=== PATIENT | male | born 1965 | race Caucasian/White ===

== ENCOUNTER 2018-11-29 12:04 | Inpatient (IN) ==
[2018-11-29] MEDS ORDERED: NITROGLYCERIN 2% OINT 1 INCH/GM PACK TOP STA (13:44)
[2018-11-29] MEDS ORDERED: ONDANSETRON 4 MG/2 ML VIAL IV STA (13:44)
[2018-11-29] MEDS ORDERED: ASPIRIN 325 MG TABLET PO STA (13:44)
[2018-11-29] MEDS ORDERED: MORPHINE 4 MG/1 ML VIAL IV STA (13:44)
[2018-11-29] MEDS ORDERED: ENOXAPARIN 100 MG/ML SYRINGE SUBCUT STA (13:44)
[2018-11-29 14:25] LABS: Basophils # 0.1 10*3/uL (0.0-0.2); Basophils % 1.1 % (0.0-0.8); Eosinophils # 0.3 10*3/uL (0.0-0.87); Eosinophils % 2.3 % (0.00-10.9); Hematocrit 48.1 VOL% (42.0-52.0); Hemoglobin 15.9 GM/DL (14.0-18.0); Immature Granulocytes % 0.8 %; Immature Granulocytes Absolute 0.09 #; Lymphocytes # 3.4 10*3/uL (1.4-4.0); Lymphocytes % 29.1 % (21.2-54.2); Mean Corpuscular HGB Conc 33.1 GM/DL (32-36); Mean Corpuscular Volume 90.8 FL (87-102); Monocytes % 7.6 % (1.7-12.7); Neutrophils % 59.1 % (38.7-73.9); Platelet Count 264 T/CUMM (130-400); Red Cell Distribution Width 12.3 % (9.3-17.3); White Blood Count 11.5 T/CUMM (4-12)
[2018-11-29 14:34] LABS: INR 0.9; PT Patient Result 10.1 SECS
[2018-11-29 14:51] LABS: Albumin 4.1 G/DL (3.4-5.0); Bilirubin,Total 0.4 MG/DL (0.2-1.0); Osmolality,Calculated 279.5 MOS/KG (273-304)
[2018-11-29] MEDS ORDERED: MORPHINE 4 MG/1 ML VIAL IV PRN (16:03)
[2018-11-29] MEDS ORDERED: ONDANSETRON 4 MG/2 ML VIAL IV PRN (16:03)
[2018-11-29] MEDS ORDERED: DOCUSATE SODIUM 100 MG CAPSULE PO PRN (16:03)
[2018-11-29] MEDS ORDERED: NICOTINE 21 MG/24 HR PATCH TRANSDERM PRN (16:03)
[2018-11-29 16:20] LABS: Apearance,Urine CLEAR (Clear); Bilirubin,Urine Negative (Negative); Blood, Urine Negative (Negative); Glucose,Urine (UA) Negative (Negative); Ketones,Urine Negative (Negative); Nitrite,Urine Negative (Negative); Protein,Urine Negative; RBC,Urine <1 /HPF (0-4); Urine Color Yellow (Yellow); Urine Specific Gravity 1.004 (1.001-1.035); Urine Urobilinogen < 2.0 EU/DL (0.2-1.0)
[2018-11-29 16:24] LABS: Barbiturates Screen,Urine Negative (Negative); Benzodiazepines Screen,Urine Negative (Negative); Cannabinoid Screen,Urine Positive (Negative); Opiate Screen,Urine Positive (Negative); Phencyclidine Screen,Urine Negative (Negative)
[2018-11-29] MEDS ORDERED: DEXTROSE 50% 25 GM/50 ML VIAL IV PRN (16:36)
[2018-11-29] MEDS ORDERED: GLUCAGON 1 MG VIAL IM PRN (16:36)
[2018-11-29] MEDS ORDERED: PNEUMOCOCCAL VACCINE (13 VALENT) 0.5 ML SYRINGE IM ONE (16:42)
[2018-11-29 17:03] LABS: Risk Ratio 4.08; Thyroid Stimulating Hormone 0.588 uIU/ml (0.358-3.74); VLDL CHOLESTEROL 22.4 MG/DL
[2018-11-29] MEDS: INSULIN GLARGINE 100 UNIT/ML SUBCUT SCH (21:12)
[2018-11-29] MEDS: metFORMIN 500 MG TABLET PO SCH (21:12)
[2018-11-29] MEDS ORDERED: ACETAMINOPHEN 325 MG TABLET PO PRN (23:30)
[2018-11-30] MEDS ORDERED: ACETAMINOPHEN 500 MG TABLET PO SCH (06:00)
[2018-11-30 06:05] LABS: Basophils # 0.1 10*3/uL (0.0-0.2); Basophils % 0.9 % (0.0-0.8); Eosinophils # 0.5 10*3/uL (0.0-0.87); Eosinophils % 3.2 % (0.00-10.9); Hematocrit 43.3 VOL% (42.0-52.0); Hemoglobin 14.6 GM/DL (14.0-18.0); Immature Granulocytes % 0.4 %; Immature Granulocytes Absolute 0.06 #; Lymphocytes # 3.9 10*3/uL (1.4-4.0); Lymphocytes % 28.1 % (21.2-54.2); Mean Corpuscular HGB Conc 33.7 GM/DL (32-36); Mean Corpuscular Volume 89.6 FL (87-102); Mean Platelet Volume 11.9 FL (9.6-12.0); Monocytes % 7.1 % (1.7-12.7); Neutrophils % 60.3 % (38.7-73.9); Platelet Count 231 T/CUMM (130-400); Red Blood Count 4.83 MC/CUMM (3.8-5.5); Red Cell Distribution Width 12.4 % (9.3-17.3); White Blood Count 13.9 T/CUMM (4-12)
[2018-11-30 06:42] LABS: Albumin 3.5 G/DL (3.4-5.0); Bilirubin,Total 0.9 MG/DL (0.2-1.0); Calcium 9.5 MG/DL (8.5-10.1); Osmolality,Calculated 278.4 MOS/KG (273-304); Total Protein 6.7 G/DL (6.4-8.3)
[2018-11-30] MEDS ORDERED: amLODIPine 5 MG TABLET PO SCH (09:00)
[2018-11-30] MEDS: METOPROLOL SUCCINATE XL 100 MG TABLET PO SCH (09:50)
[2018-11-30] MEDS: SIMVASTATIN 10 MG TABLET PO SCH (09:50)
[2018-11-30] MEDS: sitaGLIPtin 100 MG TABLET PO SCH (09:51)
[2018-11-30] MEDS: HYDROmorphone 2 MG TABLET PO PRN (09:51)
[2018-11-30] MEDS: metFORMIN 500 MG TABLET PO SCH ×2 (09:51→22:55)
[2018-11-30] MEDS: fentaNYL 50 MCG/HR PATCH TRANSDERM SCH (09:51)
[2018-11-30] MEDS: PANTOPRAZOLE 40 MG TABLET PO SCH (09:52)
[2018-11-30] MEDS: NICOTINE 21 MG/24 HR PATCH TRANSDERM SCH (11:05)
[2018-11-30] MEDS ORDERED: ASPIRIN EC 81 MG TABLET PO SCH (11:53)
[2018-11-30] MEDS: INSULIN LISPRO PROTAMINE/LISPRO 75/25 100 UNIT/ML SUBCUT SCH ×2 (12:15→16:45)
[2018-11-30] MEDS ORDERED: ALUM/MAG/SIMETH/LIDO VISC 1:1 30 ML BOTTLE PO PRN (15:12)
[2018-11-30] MEDS ORDERED: ENOXAPARIN 40 MG/0.4 ML SYRINGE SUBCUT ONE (15:14)
[2018-11-30] MEDS ORDERED: ENOXAPARIN 40 MG/0.4 ML SYRINGE SUBCUT SCH (16:30)
[2018-11-30] MEDS: ACETAMINOPHEN 325 MG TABLET PO SCH ×2 (16:43→20:38)
[2018-11-30] MEDS: ASPIRIN CHEW 81 MG TABLET PO SCH (16:43)
[2018-11-30] MEDS: hydroCHLOROthiazide 12.5 MG CAPSULE PO SCH (16:44)
[2018-11-30] MEDS: MINOXIDIL 2.5 MG TABLET PO SCH ×2 (16:44→20:37)
[2018-11-30] MEDS: LISINOPRIL 5 MG TABLET PO SCH (16:44)
[2018-11-30] MEDS: ENOXAPARIN 80 MG/0.8 ML SYRINGE SUBCUT SCH (16:45)
[2018-11-30] MEDS: GABAPENTIN 100 MG CAPSULE PO SCH (20:38)
[2018-11-30] MEDS ORDERED: amLODIPine 5 MG TABLET PO ONE (21:00)
[2018-11-30] MEDS ORDERED: ENOXAPARIN 80 MG/0.8 ML SYRINGE SUBCUT ONE (22:00)
[2018-11-30] MEDS: INSULIN GLARGINE 100 UNIT/ML SUBCUT SCH (22:55)
[2018-12-01] MEDS: ENOXAPARIN 80 MG/0.8 ML SYRINGE SUBCUT SCH ×2 (03:55→16:00)
[2018-12-01 04:53] LABS: Basophils # 0.1 10*3/uL (0.0-0.2); Basophils % 1.4 % (0.0-0.8); Eosinophils # 0.4 10*3/uL (0.0-0.87); Eosinophils % 4.2 % (0.00-10.9); Hematocrit 42.3 VOL% (42.0-52.0); Hemoglobin 14.3 GM/DL (14.0-18.0); Immature Granulocytes % 0.6 %; Immature Granulocytes Absolute 0.05 #; Lymphocytes # 4.1 10*3/uL (1.4-4.0); Lymphocytes % 48.6 % (21.2-54.2); Mean Corpuscular HGB Conc 33.8 GM/DL (32-36); Mean Corpuscular Volume 89.8 FL (87-102); Mean Platelet Volume 11.7 FL (9.6-12.0); Monocytes % 7.6 % (1.7-12.7); Neutrophils % 37.6 % (38.7-73.9); Platelet Count 209 T/CUMM (130-400); Red Blood Count 4.71 MC/CUMM (3.8-5.5); White Blood Count 8.3 T/CUMM (4-12)
[2018-12-01 05:28] LABS: Albumin 3.4 G/DL (3.4-5.0); Bilirubin,Total 0.7 MG/DL (0.2-1.0); Calcium 8.9 MG/DL (8.5-10.1); Osmolality,Calculated 289.5 MOS/KG (273-304); Total Protein 6.4 G/DL (6.4-8.3)
[2018-12-01 06:12] LABS: Band Neutrophils 3 % (0-10); Eosinophils 4 % (0-10); Lymphocytes 42 % (20-55); Platelet Estimate Normal; Polychromasia Few; Segmented Neutrophils 46 % (50-85); Total Cells Counted 100
[2018-12-01] MEDS ORDERED: diphenhydrAMINE CAP 25 MG CAPSULE PO ONE (08:29)
[2018-12-01] MEDS ORDERED: MAGNESIUM SULF RIDER 2 GM in PREMIX 1 EACH IV PRN (08:29)
[2018-12-01] MEDS ORDERED: POTASSIUM CHLORIDE RIDER 10 MEQ in PREMIX 1 EACH IV PRN (08:29)
[2018-12-01] MEDS ORDERED: DIAZEPAM 5 MG TABLET PO ONE (08:29)
[2018-12-01] MEDS ORDERED: SODIUM CHLORIDE 0.9% 1,000 ML IV SCH (08:30)
[2018-12-01] MEDS: INSULIN LISPRO PROTAMINE/LISPRO 75/25 100 UNIT/ML SUBCUT SCH ×3 (09:06→18:19)
[2018-12-01] MEDS: NICOTINE 21 MG/24 HR PATCH TRANSDERM SCH (09:09)
[2018-12-01] MEDS: ACETAMINOPHEN 325 MG TABLET PO SCH ×2 (10:48→22:17)
[2018-12-01] MEDS: PANTOPRAZOLE 40 MG TABLET PO SCH ×2 (10:48→16:40)
[2018-12-01] MEDS: METOPROLOL SUCCINATE XL 100 MG TABLET PO SCH ×2 (10:48→16:39)
[2018-12-01] MEDS: SIMVASTATIN 10 MG TABLET PO SCH (10:48)
[2018-12-01] MEDS: LISINOPRIL 5 MG TABLET PO SCH ×2 (10:50→16:40)
[2018-12-01] MEDS: sitaGLIPtin 100 MG TABLET PO SCH ×2 (10:51→16:39)
[2018-12-01] MEDS: hydroCHLOROthiazide 12.5 MG CAPSULE PO SCH ×2 (10:51→16:38)
[2018-12-01] MEDS: MINOXIDIL 2.5 MG TABLET PO SCH ×3 (10:51→22:17)
[2018-12-01] MEDS: GABAPENTIN 100 MG CAPSULE PO SCH ×4 (10:51→22:22)
[2018-12-01] MEDS: amLODIPine 10 MG TABLET PO SCH ×2 (10:51→16:38)
[2018-12-01] MEDS: ASPIRIN CHEW 81 MG TABLET PO SCH ×2 (10:53→16:38)
[2018-12-01] MEDS ORDERED: LIDOCAINE 1% 20 ML VIAL ONE (15:09)
[2018-12-01] MEDS ORDERED: MIDAZOLAM 2 MG/2 ML VIAL ONE (15:33)
[2018-12-01] MEDS ORDERED: fentaNYL 100 MCG/2 ML VIAL ONE (15:33)
[2018-12-01] MEDS ORDERED: DEXTROSE 50% 25 GM/50 ML VIAL IV PRN (16:27)
[2018-12-01] MEDS: HYDROmorphone 2 MG TABLET PO PRN (16:43)
[2018-12-01] MEDS: ROSUVASTATIN 10 MG TABLET PO SCH (22:16)
[2018-12-01] MEDS: INSULIN GLARGINE 100 UNIT/ML SUBCUT SCH (22:18)
[2018-12-02 05:41] LABS: Basophils # 0.1 10*3/uL (0.0-0.2); Basophils % 0.8 % (0.0-0.8); Eosinophils # 0.4 10*3/uL (0.0-0.87); Eosinophils % 3.8 % (0.00-10.9); Hematocrit 43.4 VOL% (42.0-52.0); Hemoglobin 14.6 GM/DL (14.0-18.0); Immature Granulocytes % 0.6 %; Immature Granulocytes Absolute 0.07 #; Lymphocytes # 3.4 10*3/uL (1.4-4.0); Lymphocytes % 30.8 % (21.2-54.2); Mean Corpuscular HGB Conc 33.6 GM/DL (32-36); Mean Corpuscular Volume 91.2 FL (87-102); Mean Platelet Volume 11.6 FL (9.6-12.0); Monocytes % 7.1 % (1.7-12.7); Neutrophils % 56.9 % (38.7-73.9); Platelet Count 212 T/CUMM (130-400); Red Blood Count 4.76 MC/CUMM (3.8-5.5); Red Cell Distribution Width 12.3 % (9.3-17.3)
[2018-12-02 06:19] LABS: Albumin 3.3 G/DL (3.4-5.0); Bilirubin,Total 0.6 MG/DL (0.2-1.0); Calcium 9.1 MG/DL (8.5-10.1); Osmolality,Calculated 283.1 MOS/KG (273-304); Total Protein 6.4 G/DL (6.4-8.3)
[2018-12-02] MEDS: INSULIN LISPRO PROTAMINE/LISPRO 75/25 100 UNIT/ML SUBCUT SCH ×3 (09:14→16:26)
[2018-12-02] MEDS: MINOXIDIL 2.5 MG TABLET PO SCH ×2 (09:16→22:58)
[2018-12-02] MEDS: LISINOPRIL 5 MG TABLET PO SCH (09:17)
[2018-12-02] MEDS: hydroCHLOROthiazide 12.5 MG CAPSULE PO SCH (09:17)
[2018-12-02] MEDS: METOPROLOL SUCCINATE XL 100 MG TABLET PO SCH (09:17)
[2018-12-02] MEDS: ASPIRIN CHEW 81 MG TABLET PO SCH (09:17)
[2018-12-02] MEDS: GABAPENTIN 100 MG CAPSULE PO SCH ×3 (09:17→22:57)
[2018-12-02] MEDS: PANTOPRAZOLE 40 MG TABLET PO SCH (09:18)
[2018-12-02] MEDS: amLODIPine 10 MG TABLET PO SCH (09:18)
[2018-12-02] MEDS: ENOXAPARIN 40 MG/0.4 ML SYRINGE SUBCUT SCH ×2 (09:18→23:00)
[2018-12-02] MEDS: NICOTINE 21 MG/24 HR PATCH TRANSDERM SCH (09:19)
[2018-12-02] MEDS: sitaGLIPtin 100 MG TABLET PO SCH (09:22)
[2018-12-02] MEDS: ACETAMINOPHEN 325 MG TABLET PO SCH ×2 (10:16→22:58)
[2018-12-02] MEDS: ROSUVASTATIN 10 MG TABLET PO SCH (22:56)
[2018-12-02] MEDS: INSULIN GLARGINE 100 UNIT/ML SUBCUT SCH (23:01)
[2018-12-03 05:05] LABS: Basophils # 0.1 10*3/uL (0.0-0.2); Eosinophils # 0.6 10*3/uL (0.0-0.87); Eosinophils % 5.9 % (0.00-10.9); Hematocrit 41.6 VOL% (42.0-52.0); Hemoglobin 13.9 GM/DL (14.0-18.0); Immature Granulocytes % 0.6 %; Immature Granulocytes Absolute 0.06 #; Lymphocytes % 32.3 % (21.2-54.2); Mean Corpuscular HGB Conc 33.4 GM/DL (32-36); Mean Corpuscular Volume 90.6 FL (87-102); Mean Platelet Volume 11.3 FL (9.6-12.0); Monocytes % 10.2 % (1.7-12.7); Platelet Count 188 T/CUMM (130-400); Red Blood Count 4.59 MC/CUMM (3.8-5.5); Red Cell Distribution Width 12.2 % (9.3-17.3); White Blood Count 9.4 T/CUMM (4-12)
[2018-12-03 05:19] LABS: Calcium 8.8 MG/DL (8.5-10.1)
[2018-12-03] MEDS: fentaNYL 50 MCG/HR PATCH TRANSDERM SCH (09:58)
[2018-12-03] MEDS: NICOTINE 21 MG/24 HR PATCH TRANSDERM SCH (09:58)
[2018-12-03] MEDS: INSULIN LISPRO PROTAMINE/LISPRO 75/25 100 UNIT/ML SUBCUT SCH ×3 (10:01→16:48)
[2018-12-03] MEDS: amLODIPine 10 MG TABLET PO SCH (10:02)
[2018-12-03] MEDS: GABAPENTIN 100 MG CAPSULE PO SCH ×3 (10:02→20:52)
[2018-12-03] MEDS: metFORMIN 500 MG TABLET PO SCH ×2 (10:02→20:51)
[2018-12-03] MEDS: ASPIRIN CHEW 81 MG TABLET PO SCH (10:02)
[2018-12-03] MEDS: ACETAMINOPHEN 325 MG TABLET PO SCH ×2 (10:03→20:51)
[2018-12-03] MEDS: MINOXIDIL 2.5 MG TABLET PO SCH ×2 (10:03→20:52)
[2018-12-03] MEDS: hydroCHLOROthiazide 12.5 MG CAPSULE PO SCH (10:03)
[2018-12-03] MEDS: PANTOPRAZOLE 40 MG TABLET PO SCH (10:03)
[2018-12-03] MEDS: sitaGLIPtin 100 MG TABLET PO SCH (10:03)
[2018-12-03] MEDS: METOPROLOL SUCCINATE XL 100 MG TABLET PO SCH (10:03)
[2018-12-03] MEDS: LISINOPRIL 5 MG TABLET PO SCH (10:03)
[2018-12-03] MEDS: HYDROmorphone 2 MG TABLET PO PRN (20:50)
[2018-12-03] MEDS: ROSUVASTATIN 10 MG TABLET PO SCH (20:52)
[2018-12-03] MEDS: INSULIN GLARGINE 100 UNIT/ML SUBCUT SCH (20:55)
[2018-12-04 05:44] LABS: Basophils # 0.1 10*3/uL (0.0-0.2); Eosinophils # 0.7 10*3/uL (0.0-0.87); Eosinophils % 6.8 % (0.00-10.9); Hematocrit 41.3 VOL% (42.0-52.0); Hemoglobin 13.8 GM/DL (14.0-18.0); Immature Granulocytes % 0.8 %; Immature Granulocytes Absolute 0.08 #; Lymphocytes # 3.4 10*3/uL (1.4-4.0); Mean Corpuscular HGB Conc 33.4 GM/DL (32-36); Mean Corpuscular Volume 90.8 FL (87-102); Mean Platelet Volume 11.6 FL (9.6-12.0); Monocytes % 9.8 % (1.7-12.7); Neutrophils % 47.6 % (38.7-73.9); Platelet Count 199 T/CUMM (130-400); Red Blood Count 4.55 MC/CUMM (3.8-5.5); Red Cell Distribution Width 12.1 % (9.3-17.3); White Blood Count 10.1 T/CUMM (4-12)
[2018-12-04] MEDS: NICOTINE 21 MG/24 HR PATCH TRANSDERM SCH (09:59)
[2018-12-04] MEDS: hydroCHLOROthiazide 12.5 MG CAPSULE PO SCH (10:02)
[2018-12-04] MEDS: PANTOPRAZOLE 40 MG TABLET PO SCH (10:02)
[2018-12-04] MEDS: ACETAMINOPHEN 325 MG TABLET PO SCH ×2 (10:02→21:46)
[2018-12-04] MEDS: GABAPENTIN 100 MG CAPSULE PO SCH ×3 (10:02→20:39)
[2018-12-04] MEDS: sitaGLIPtin 100 MG TABLET PO SCH (10:03)
[2018-12-04] MEDS: amLODIPine 10 MG TABLET PO SCH (10:03)
[2018-12-04] MEDS: METOPROLOL SUCCINATE XL 100 MG TABLET PO SCH (10:03)
[2018-12-04] MEDS ORDERED: ENOXAPARIN 40 MG/0.4 ML SYRINGE SUBCUT SCH ×2 (10:30→21:00)
[2018-12-04] MEDS ORDERED: ASPIRIN EC 325 MG TABLET PO ONE (12:00)
[2018-12-04] MEDS: INSULIN LISPRO PROTAMINE/LISPRO 75/25 100 UNIT/ML SUBCUT SCH ×3 (12:01→18:43)
[2018-12-04] MEDS: LISINOPRIL 5 MG TABLET PO SCH ×2 (12:01→18:44)
[2018-12-04] MEDS ORDERED: hydrALAZINE 20 MG/1 ML VIAL IV PRN (16:30)
[2018-12-04] MEDS: ASPIRIN CHEW 81 MG TABLET PO SCH (18:43)
[2018-12-04] MEDS: metFORMIN 500 MG TABLET PO SCH (18:43)
[2018-12-04] MEDS: MINOXIDIL 2.5 MG TABLET PO SCH ×2 (18:44→20:38)
[2018-12-04] MEDS: INSULIN GLARGINE 100 UNIT/ML SUBCUT SCH (20:37)
[2018-12-04] MEDS: ROSUVASTATIN 10 MG TABLET PO SCH (20:37)
[2018-12-04] MEDS: HYDROmorphone 2 MG TABLET PO PRN (23:52)
[2018-12-05 05:10] LABS: Basophils # 0.1 10*3/uL (0.0-0.2); Basophils % 0.7 % (0.0-0.8); Eosinophils # 0.8 10*3/uL (0.0-0.87); Eosinophils % 6.7 % (0.00-10.9); Hematocrit 41.3 VOL% (42.0-52.0); Hemoglobin 13.8 GM/DL (14.0-18.0); Immature Granulocytes % 0.9 %; Lymphocytes % 34.1 % (21.2-54.2); Mean Corpuscular HGB Conc 33.4 GM/DL (32-36); Mean Platelet Volume 12.2 FL (9.6-12.0); Monocytes % 8.7 % (1.7-12.7); Neutrophils % 48.9 % (38.7-73.9); Platelet Count 194 T/CUMM (130-400); Red Blood Count 4.59 MC/CUMM (3.8-5.5); Red Cell Distribution Width 12.2 % (9.3-17.3); White Blood Count 11.6 T/CUMM (4-12)
[2018-12-05 05:15] LABS: Calcium 9.3 MG/DL (8.5-10.1); Osmolality,Calculated 287.5 MOS/KG (273-304)
[2018-12-05] MEDS ORDERED: CEFUROXIME INJ 1,500 MG in SODIUM CHLORIDE 0.9% 100 ML IV ONE (07:00)
[2018-12-05] MEDS ORDERED: DEXTROSE 50% 25 GM/50 ML VIAL IV PRN (07:34)
[2018-12-05] MEDS ORDERED: GLUCAGON 1 MG VIAL IM PRN (07:34)
[2018-12-05] MEDS ORDERED: DEXTROSE 10% 250 ML IV PRN (07:41)
[2018-12-05] MEDS ORDERED: SODIUM CHLORIDE 0.9% 1,000 ML IV SCH (08:00)
[2018-12-05] MEDS: LISINOPRIL 5 MG TABLET PO SCH (09:31)
[2018-12-05] MEDS: MINOXIDIL 2.5 MG TABLET PO SCH ×2 (09:31→20:49)
[2018-12-05] MEDS: NICOTINE 21 MG/24 HR PATCH TRANSDERM SCH (09:31)
[2018-12-05] MEDS: hydroCHLOROthiazide 12.5 MG CAPSULE PO SCH (09:31)
[2018-12-05] MEDS: ASPIRIN EC 325 MG TABLET PO SCH (09:32)
[2018-12-05] MEDS: GABAPENTIN 100 MG CAPSULE PO SCH ×3 (09:32→20:58)
[2018-12-05] MEDS: amLODIPine 10 MG TABLET PO SCH (09:32)
[2018-12-05] MEDS: PANTOPRAZOLE 40 MG TABLET PO SCH (09:33)
[2018-12-05] MEDS: METOPROLOL SUCCINATE XL 100 MG TABLET PO SCH (09:33)
[2018-12-05] MEDS: sitaGLIPtin 100 MG TABLET PO SCH (09:33)
[2018-12-05] MEDS: ACETAMINOPHEN 325 MG TABLET PO SCH ×2 (09:34→20:58)
[2018-12-05] MEDS: INSULIN LISPRO PROTAMINE/LISPRO 75/25 100 UNIT/ML SUBCUT SCH ×3 (09:34→17:21)
[2018-12-05] MEDS: CHLORHEXIDINE 4% SOLN 118 ML BOTTLE TOP SCH ×3 (09:39→20:58)
[2018-12-05] MEDS: CHLORHEXIDINE 0.12% ORAL RINSE 60 ML BOTTLE SWISH/SPIT SCH ×2 (09:39→20:58)
[2018-12-05 10:24] LABS: ABG Base Excess 2.2 MMOL/L (-2.5-2.5); ABG HCO3 25.7 MMOL/L (20-26); ABG Oxygen Saturation 96.5 % (95-100); ABG PCO2 36.6 MM HG (35-48); ABG PH 7.465 (7.35-7.45); ABG PO2 83.1 MM HG (80-95); ABG TCO2 26.9 MMOL/L (23-27)
[2018-12-05] MEDS: ROSUVASTATIN 10 MG TABLET PO SCH (20:49)
[2018-12-05] MEDS: HYDROmorphone 2 MG TABLET PO PRN (20:50)
[2018-12-05] MEDS: INSULIN GLARGINE 100 UNIT/ML SUBCUT SCH (20:51)
[2018-12-06] MEDS ORDERED: PAPAVERINE 60 MG/2 ML VIAL ONE (04:23)
[2018-12-06] MEDS ORDERED: VANCOMYCIN 1,000 MG VIAL ONE (04:23)
[2018-12-06] MEDS ORDERED: PHENYLEPHRINE DRIP 20 MG/250 ML PREMIX IV ONE (05:52)
[2018-12-06] MEDS ORDERED: HEPARIN/NACL 0.9% 2 UNITS/ML 500 ML IV ONE (05:52)
[2018-12-06] MEDS ORDERED: AMINOCAPROIC ACID 5,000 MG/20 ML VIAL ONE (05:53)
[2018-12-06] MEDS ORDERED: SUFentanil 250 MCG/5 ML AMP ONE (05:53)
[2018-12-06] MEDS ORDERED: MIDAZOLAM 10 MG/2 ML VIAL ONE ×2 (05:53→09:32)
[2018-12-06 07:47] LABS: ABG Base Excess 3.2 MMOL/L (-2.5-2.5); ABG HCO3 27.3 MMOL/L (20-26); ABG PCO2 38.4 MM HG (35-48); ABG PH 7.456 (7.35-7.45); ABG TCO2 23.3 MMOL/L (23-27); Glucose Heart Surgery 209 MG/DL (74-106); Hematocrit Heart Surgery 41.9 PERCENT (42-52); Hemoglobin Heart Surgery 13.6 G/DL (14.0-18.0); Ionized Calcium Arterial 1.19 MMOL/L (1.21-1.46); PCO2 Patient Temp Arterial 38.4 MMHG; PH Patient Temp Arterial 7.456; Patient Temperature 37 CELCIUS; Sodium Heart/CVR 137 MMOL/L (135-145)
[2018-12-06 08:20] LABS: Apearance,Urine CLEAR (Clear); Bilirubin,Urine Negative (Negative); Blood, Urine Large mg/dL (Negative); Glucose,Urine (UA) 50 mg/dL (Negative); Ketones,Urine Negative (Negative); Mucus,Urine Occasional /LPF (Occasional); Nitrite,Urine Negative (Negative); Protein,Urine Negative; RBC,Urine 22 /HPF (0-4); Squamous Epithelial Cell,Urine Occasional /HPF (0-10); Urine Color Yellow (Yellow); Urine Specific Gravity 1.012 (1.001-1.035); Urine Urobilinogen < 2.0 EU/DL (0.2-1.0); WBC,Urine <1 /HPF (0-6)
[2018-12-06] MEDS ORDERED: NITROPRUSSIDE 50 MG/2 ML VIAL ONE (08:56)
[2018-12-06] MEDS ORDERED: POTASSIUM CHLORIDE RIDER 100 ML IV ONE (08:57)
[2018-12-06] MEDS ORDERED: PHENYLEPHRINE DRIP 40 MG/250 ML PREMIX IV ONE (08:57)
[2018-12-06 09:21] LABS: Hemoglobin Heart Surgery 9.9 G/DL (14.0-18.0); PCO2 Patient Temp Venous 35.6 MM HG; PH Patient Temp Venous 7.489; PO2 Patient Temp Venous 35.9 MM HG; Potassium Heart/CVR 4.9 MMOL/L (3.5-5.1); VBG Oxygen Saturation 77.5 %; VBG PCO2 38.9 MMHG (41-51); VBG PH 7.459; VBG PO2 41.3 MMHG (17-40)
[2018-12-06] MEDS ORDERED: ALBUMIN 5% 12.5 GM/250 ML VIAL IV ONE (09:25)
[2018-12-06] MEDS ORDERED: SUFentanil 50 MCG/ML AMP ONE (09:32)
[2018-12-06] MEDS ORDERED: NITROGLYCERIN DRIP 50 MG/250 ML BOTTLE IV ONE (09:32)
[2018-12-06 09:53] LABS: PCO2 Patient Temp Venous 35.6 MM HG; PH Patient Temp Venous 7.476; PO2 Patient Temp Venous 36.9 MM HG; Potassium Heart/CVR 4.7 MMOL/L (3.5-5.1); VBG Base Excess 2.9 MEQ/L (0-4); VBG HCO3 26.7 MEQ/L (24-28); VBG Oxygen Saturation 79.6 %; VBG PCO2 39.3 MMHG (41-51); VBG PH 7.446; VBG PO2 42.5 MMHG (17-40)
[2018-12-06] MEDS ORDERED: MANNITOL 100 GM/500 ML BAG IV ONE (10:45)
[2018-12-06] MEDS ORDERED: PROTAMINE SULFATE 50 MG/5 ML VIAL IV ONE (10:46)
[2018-12-06] MEDS ORDERED: SODIUM BICARBONATE 50 MEQ/50 ML VIAL IV ONE (10:46)
[2018-12-06] MEDS ORDERED: MAGNESIUM SULFATE 5 GM/10 ML VIAL IV ONE (10:46)
[2018-12-06] MEDS ORDERED: HEPARIN 10,000 UNIT/10 ML VIAL ONE (10:46)
[2018-12-06] MEDS ORDERED: methylPREDNISolone SOD SUC 1,000 MG/8 ML VIAL ONE (10:46)
[2018-12-06] MEDS ORDERED: ALBUMIN 25% 25 GM/100 ML VIAL IV ONE (10:46)
[2018-12-06] MEDS ORDERED: PROTAMINE SULFATE 250 MG/25 ML VIAL IV ONE (10:46)
[2018-12-06] MEDS ORDERED: FUROSEMIDE 20 MG/2 ML VIAL ONE (10:46)
[2018-12-06] MEDS ORDERED: DEXTROSE 5% KCL 20 MEQ 20 MEQ/1,000 ML BAG IV ONE (10:47)
[2018-12-06 10:58] LABS: ABG Base Excess 0.6 MMOL/L (-2.5-2.5); ABG Oxygen Saturation 99.5 % (95-100); ABG PCO2 37.8 MM HG (35-48); ABG PH 7.426 (7.35-7.45); ABG TCO2 22.4 MMOL/L (23-27); Glucose Heart Surgery 373 MG/DL (74-106); Hematocrit Heart Surgery 32.3 PERCENT (42-52); Hemoglobin Heart Surgery 10.5 G/DL (14.0-18.0); Ionized Calcium Arterial 1.18 MMOL/L (1.21-1.46); PCO2 Patient Temp Arterial 37.8 MMHG; PH Patient Temp Arterial 7.426; Patient Temperature 37 CELCIUS; Potassium Heart/CVR 4.5 MMOL/L (3.5-5.1); Sodium Heart/CVR 133 MMOL/L (135-145)
[2018-12-06] MEDS ORDERED: SODIUM CHLORIDE 0.9% 100 ML IV ONE (12:00)
[2018-12-06] MEDS ORDERED: LACTATED RINGERS 2,000 ML IV ONE (12:00)
[2018-12-06] MEDS ORDERED: ETOMIDATE 40 MG/20 ML VIAL IV ONE (12:00)
[2018-12-06] MEDS ORDERED: CALCIUM CHLORIDE 1,000 MG/10 ML VIAL IV ONE (12:00)
[2018-12-06] MEDS ORDERED: SODIUM CHLORIDE 0.9% 1,000 ML IV ONE (12:00)
[2018-12-06] MEDS ORDERED: VECURONIUM 10 MG VIAL IV ONE (12:00)
[2018-12-06] MEDS ORDERED: SEVOFLURANE 1 UNIT/15 MINUTE INH ONE (12:02)
[2018-12-06] MEDS ORDERED: INSULIN REGULAR 100 UNIT/ML IV PRN (12:07)
[2018-12-06] MEDS ORDERED: POTASSIUM CHLORIDE RIDER 10 MEQ in PREMIX 1 EACH IV PRN (12:07)
[2018-12-06] MEDS ORDERED: VECURONIUM 10 MG VIAL IV PRN ×2 (12:07)
[2018-12-06] MEDS ORDERED: CALCIUM CHLORIDE 1,000 MG/10 ML SYRINGE IV PRN (12:07)
[2018-12-06] MEDS ORDERED: MIDAZOLAM 10 MG/2 ML VIAL IV PRN (12:07)
[2018-12-06] MEDS ORDERED: INSULIN REGULAR 100 UNIT/ML IV ONE (12:07)
[2018-12-06] MEDS ORDERED: ONDANSETRON 4 MG/2 ML VIAL IV PRN (12:07)
[2018-12-06] MEDS ORDERED: ALBUMIN 5% 12.5 GM in PREMIX 1 EACH IV PRN (12:07)
[2018-12-06] MEDS ORDERED: ACETAMINOPHEN 650 MG SUPP RECTAL PRN (12:07)
[2018-12-06] MEDS ORDERED: MAGNESIUM SULF RIDER 2 GM in PREMIX 1 EACH IV PRN (12:07)
[2018-12-06] MEDS ORDERED: MAGNESIUM SULF RIDER 4 GM in PREMIX 1 EACH IV PRN (12:07)
[2018-12-06] MEDS ORDERED: DEXTROSE 50% 25 GM/50 ML VIAL IV PRN ×2 (12:07)
[2018-12-06] MEDS ORDERED: LACTATED RINGERS 250 ML IV PRN (12:07)
[2018-12-06] MEDS ORDERED: PHENYLEPHRINE DRIP 40 MG/250 ML PREMIX IV PRN (12:07)
[2018-12-06] MEDS: MIDAZOLAM 2 MG/2 ML VIAL IV PRN ×3 (12:15→14:34)
[2018-12-06] MEDS: SODIUM CHLORIDE 0.45% 1,000 ML IV SCH ×2 (12:16)
[2018-12-06 12:40] LABS: ABG Base Excess 0.8 MMOL/L (-2.5-2.5); ABG Oxygen Saturation 91.4 % (95-100); ABG PCO2 49.2 MM HG (35-48); ABG PH 7.348 (7.35-7.45); ABG PO2 65.3 MM HG (80-95); ABG TCO2 24.3 MMOL/L (23-27); Glucose Heart Surgery 294 MG/DL (74-106); Hemoglobin Heart Surgery 11.4 G/DL (14.0-18.0); Potassium Heart/CVR 3.3 MMOL/L (3.5-5.1)
[2018-12-06 12:41] LABS: Basophils # 0.1 10*3/uL (0.0-0.2); Basophils % 0.5 % (0.0-0.8); Eosinophils # 0.1 10*3/uL (0.0-0.87); Eosinophils % 0.7 % (0.00-10.9); Hematocrit 32.7 VOL% (42.0-52.0); Immature Granulocytes Absolute 0.13 #; Mean Corpuscular HGB Conc 33.6 GM/DL (32-36); Mean Corpuscular Volume 90.6 FL (87-102); Neutrophils % 86.8 % (38.7-73.9); Red Cell Distribution Width 12.2 % (9.3-17.3); White Blood Count 13.6 T/CUMM (4-12)
[2018-12-06] MEDS: NITROPRUSSIDE 100 MG in DEXTROSE 5% 250 ML IV PRN (12:43)
[2018-12-06 12:44] LABS: Platelet Count 176 T/CUMM (130-400); Red Blood Count 3.61 MC/CUMM (3.8-5.5)
[2018-12-06] MEDS: POTASSIUM CHLORIDE RIDER 20 MEQ in PREMIX 1 EACH IV PRN ×5 (12:49→23:55)
[2018-12-06 12:51] LABS: PT Patient Result 10.7 SECS; Partial Thromboplastin Time 27.1 SECS (0-40)
[2018-12-06] MEDS: INSULIN REGULAR DRIP 100 ML IV SCH (13:05)
[2018-12-06 13:08] LABS: CKMB % 6.7 %
[2018-12-06 13:10] LABS: Troponin I 4.22 NG/ML (0.00-0.045)
[2018-12-06 13:11] LABS: Albumin 3.3 G/DL (3.4-5.0); Bilirubin,Total 0.9 MG/DL (0.2-1.0); Calcium 8.4 MG/DL (8.5-10.1); Osmolality,Calculated 292.3 MOS/KG (273-304); Total Protein 5.7 G/DL (6.4-8.3)
[2018-12-06] MEDS: KETOROLAC 30 MG/1 ML VIAL IV SCH ×3 (13:14→23:36)
[2018-12-06 13:28] LABS: ABG Base Excess -0.6 MMOL/L (-2.5-2.5); ABG HCO3 23.9 MMOL/L (20-26); ABG PCO2 44.6 MM HG (35-48); ABG PH 7.358 (7.35-7.45); ABG TCO2 22.6 MMOL/L (23-27); Glucose Heart Surgery 283 MG/DL (74-106); Potassium Heart/CVR 3.4 MMOL/L (3.5-5.1)
[2018-12-06] MEDS ORDERED: PROPOFOL 1,000 MG/100 ML BOTTLE IV ONE (13:36)
[2018-12-06] MEDS: PROPOFOL 1,000 MG/100 ML BOTTLE IV SCH ×3 (13:49→20:59)
[2018-12-06] MEDS ORDERED: AMIODARONE INJ 150 MG in DEXTROSE 5% 100 ML IV ONE (14:00)
[2018-12-06] MEDS ORDERED: AMIODARONE INJ 450 MG in DEXTROSE 5% 241 ML IV SCH (14:00)
[2018-12-06 14:27] LABS: ABG Base Excess 0.4 MMOL/L (-2.5-2.5); ABG HCO3 24.8 MMOL/L (20-26); ABG Oxygen Saturation 97.5 % (95-100); ABG PCO2 38.8 MM HG (35-48); ABG PH 7.414 (7.35-7.45); ABG PO2 89.4 MM HG (80-95); ABG TCO2 22.3 MMOL/L (23-27); Glucose Heart Surgery 280 MG/DL (74-106); Hematocrit Heart Surgery 33.7 PERCENT (42-52); Hemoglobin Heart Surgery 10.9 G/DL (14.0-18.0); Potassium Heart/CVR 4.1 MMOL/L (3.5-5.1)
[2018-12-06 16:16] LABS: ABG Base Excess -2.4 MMOL/L (-2.5-2.5); ABG HCO3 22.4 MMOL/L (20-26); ABG Oxygen Saturation 98.3 % (95-100); ABG PCO2 41.9 MM HG (35-48); ABG PH 7.351 (7.35-7.45); ABG TCO2 20.8 MMOL/L (23-27); Glucose Heart Surgery 260 MG/DL (74-106); Hematocrit Heart Surgery 35.1 PERCENT (42-52); Hemoglobin Heart Surgery 11.4 G/DL (14.0-18.0); Potassium Heart/CVR 3.6 MMOL/L (3.5-5.1)
[2018-12-06 17:45] LABS: ABG Base Excess 1.3 MMOL/L (-2.5-2.5); ABG HCO3 25.5 MMOL/L (20-26); ABG Oxygen Saturation 97.7 % (95-100); ABG PCO2 39.3 MM HG (35-48); ABG PH 7.422 (7.35-7.45); ABG PO2 91.4 MM HG (80-95); ABG TCO2 22.9 MMOL/L (23-27); Glucose Heart Surgery 240 MG/DL (74-106); Hematocrit Heart Surgery 34.6 PERCENT (42-52); Hemoglobin Heart Surgery 11.2 G/DL (14.0-18.0); Potassium Heart/CVR 4.3 MMOL/L (3.5-5.1)
[2018-12-06] MEDS: hydroCHLOROthiazide 12.5 MG CAPSULE PO SCH (19:20)
[2018-12-06] MEDS: fentaNYL 50 MCG/HR PATCH TRANSDERM SCH (19:20)
[2018-12-06] MEDS: ASPIRIN EC 325 MG TABLET PO SCH (19:20)
[2018-12-06] MEDS: INSULIN LISPRO PROTAMINE/LISPRO 75/25 100 UNIT/ML SUBCUT SCH ×2 (19:20→20:13)
[2018-12-06] MEDS: GABAPENTIN 100 MG CAPSULE PO SCH (19:21)
[2018-12-06] MEDS: sitaGLIPtin 100 MG TABLET PO SCH (19:21)
[2018-12-06] MEDS: amLODIPine 10 MG TABLET PO SCH (19:21)
[2018-12-06] MEDS: CHLORHEXIDINE 0.12% ORAL RINSE 60 ML BOTTLE SWISH/SPIT SCH ×2 (19:21→20:58)
[2018-12-06] MEDS: MINOXIDIL 2.5 MG TABLET PO SCH (19:21)
[2018-12-06] MEDS: NICOTINE 21 MG/24 HR PATCH TRANSDERM SCH (19:21)
[2018-12-06] MEDS: METOPROLOL SUCCINATE XL 100 MG TABLET PO SCH (19:22)
[2018-12-06] MEDS: PANTOPRAZOLE 40 MG TABLET PO SCH (19:22)
[2018-12-06] MEDS: LISINOPRIL 5 MG TABLET PO SCH (19:22)
[2018-12-06] MEDS: ACETAMINOPHEN 325 MG TABLET PO SCH (19:22)
[2018-12-06 20:05] LABS: ABG Base Excess 2.2 MMOL/L (-2.5-2.5); ABG HCO3 26.2 MMOL/L (20-26); ABG Oxygen Saturation 96.4 % (95-100); ABG PCO2 38.9 MM HG (35-48); ABG PH 7.447 (7.35-7.45); ABG PO2 87.3 MM HG (80-95); ABG TCO2 27.4 MMOL/L (23-27); Glucose Heart Surgery 215 MG/DL (74-106); Potassium Heart/CVR 4.5 MMOL/L (3.5-5.1)
[2018-12-06] MEDS ORDERED: DEXMEDETOMIDINE 200 MCG in SODIUM CHLORIDE 0.9% 48 ML IV PRN (20:10)
[2018-12-06 20:14] LABS: Hemoglobin Heart Surgery 11.9 G/DL (14.0-18.0)
[2018-12-06] MEDS: CEFUROXIME INJ 1,500 MG in SYRINGE 1 EACH IV SCH (20:17)
[2018-12-06 20:26] LABS: CKMB % 3.5 %
[2018-12-06 20:27] LABS: Troponin I 3.41 NG/ML (0.00-0.045)
[2018-12-06] MEDS: MORPHINE 10 MG/1 ML VIAL IV PRN ×2 (20:28→23:29)
[2018-12-06] MEDS: AMIODARONE INJ 450 MG in DEXTROSE 5% 241 ML IV SCH (20:30)
[2018-12-06 23:49] LABS: ABG Base Excess 1.9 MMOL/L (-2.5-2.5); ABG HCO3 26.1 MMOL/L (20-26); ABG Oxygen Saturation 97.7 % (95-100); ABG PCO2 39.7 MM HG (35-48); ABG PH 7.429 (7.35-7.45); ABG PO2 94.4 MM HG (80-95); ABG TCO2 23.4 MMOL/L (23-27); Glucose Heart Surgery 152 MG/DL (74-106); Hematocrit Heart Surgery 35.5 PERCENT (42-52); Hemoglobin Heart Surgery 11.5 G/DL (14.0-18.0); Potassium Heart/CVR 4.1 MMOL/L (3.5-5.1)
[2018-12-07] MEDS ORDERED: FUROSEMIDE 40 MG/4 ML VIAL IV ONE
[2018-12-07 01:45] LABS: ABG Base Excess 2.2 MMOL/L (-2.5-2.5); ABG HCO3 26.2 MMOL/L (20-26); ABG Oxygen Saturation 95.6 % (95-100); ABG PCO2 38.3 MM HG (35-48); ABG PH 7.442 (7.35-7.45); ABG PO2 74.7 MM HG (80-95); ABG TCO2 22.2 MMOL/L (23-27); Glucose Heart Surgery 129 MG/DL (74-106); Hematocrit Heart Surgery 45.6 PERCENT (42-52); Hemoglobin Heart Surgery 14.9 G/DL (14.0-18.0); Potassium Heart/CVR 4.1 MMOL/L (3.5-5.1)
[2018-12-07] MEDS: PROPOFOL 1,000 MG/100 ML BOTTLE IV SCH (02:26)
[2018-12-07] MEDS: INSULIN REGULAR DRIP 100 ML IV SCH (03:03)
[2018-12-07 04:03] LABS: Basophils % 0.1 % (0.0-0.8); Eosinophils % 0.1 % (0.00-10.9); Hematocrit 31.3 VOL% (42.0-52.0); Hemoglobin 10.6 GM/DL (14.0-18.0); Immature Granulocytes % 0.5 %; Immature Granulocytes Absolute 0.08 #; Lymphocytes # 1.1 10*3/uL (1.4-4.0); Lymphocytes % 6.3 % (21.2-54.2); Mean Corpuscular HGB Conc 33.9 GM/DL (32-36); Mean Corpuscular Volume 91.5 FL (87-102); Platelet Count 166 T/CUMM (130-400); Red Blood Count 3.42 MC/CUMM (3.8-5.5); Red Cell Distribution Width 12.7 % (9.3-17.3); White Blood Count 17.7 T/CUMM (4-12)
[2018-12-07 04:03] LABS: ABG Base Excess 2.3 MMOL/L (-2.5-2.5); ABG HCO3 26.5 MMOL/L (20-26); ABG Oxygen Saturation 97.9 % (95-100); ABG PCO2 43.6 MM HG (35-48); ABG PH 7.405 (7.35-7.45); ABG PO2 95.2 MM HG (80-95); ABG TCO2 24.5 MMOL/L (23-27); Glucose Heart Surgery 94 MG/DL (74-106); Hematocrit Heart Surgery 34.4 PERCENT (42-52); Hemoglobin Heart Surgery 11.1 G/DL (14.0-18.0); Potassium Heart/CVR 4.2 MMOL/L (3.5-5.1)
[2018-12-07 04:30] LABS: CKMB % 1.8 %; Troponin I 2.49 NG/ML (0.00-0.045)
[2018-12-07] MEDS: MORPHINE 10 MG/1 ML VIAL IV PRN ×3 (04:30→10:00)
[2018-12-07 04:34] LABS: Albumin 3.2 G/DL (3.4-5.0); Bilirubin,Direct 0.13 MG/DL (0.0-0.20); Bilirubin,Total 0.4 MG/DL (0.2-1.0); Calcium 8.4 MG/DL (8.5-10.1); Osmolality,Calculated 287.8 MOS/KG (273-304); Total Protein 5.9 G/DL (6.4-8.3)
[2018-12-07 05:16] LABS: ABG Base Excess 1.3 MMOL/L (-2.5-2.5); ABG HCO3 25.4 MMOL/L (20-26); ABG Oxygen Saturation 91.7 % (95-100); ABG PCO2 40.2 MM HG (35-48); ABG PH 7.416 (7.35-7.45); ABG PO2 61.2 MM HG (80-95); Glucose Heart Surgery 169 MG/DL (74-106); Hematocrit Heart Surgery 35.9 PERCENT (42-52); Hemoglobin Heart Surgery 11.6 G/DL (14.0-18.0); Potassium Heart/CVR 4.2 MMOL/L (3.5-5.1)
[2018-12-07] MEDS: POTASSIUM CHLORIDE RIDER 20 MEQ in PREMIX 1 EACH IV PRN (05:21)
[2018-12-07] MEDS: KETOROLAC 30 MG/1 ML VIAL IV SCH ×3 (05:41→17:48)
[2018-12-07] MEDS: CEFUROXIME INJ 1,500 MG in SYRINGE 1 EACH IV SCH ×2 (08:35→20:17)
[2018-12-07] MEDS: INSULIN REGULAR 100 UNIT/ML SUBCUT SCH ×5 (08:35→23:54)
[2018-12-07] MEDS: CHLORHEXIDINE 0.12% ORAL RINSE 60 ML BOTTLE SWISH/SPIT SCH ×2 (08:43→20:18)
[2018-12-07] MEDS ORDERED: GLUCAGON 1 MG VIAL IM PRN (09:39)
[2018-12-07] MEDS ORDERED: DEXTROSE 50% 25 GM/50 ML VIAL IV PRN (09:39)
[2018-12-07] MEDS ORDERED: INSULIN REGULAR 100 UNIT/ML SUBCUT SCH (10:00)
[2018-12-07] MEDS ORDERED: ASPIRIN EC 325 MG TABLET PO ONE (10:00)
[2018-12-07] MEDS ORDERED: MINOXIDIL 2.5 MG TABLET PO SCH (10:00)
[2018-12-07] MEDS: fentaNYL 50 MCG/HR PATCH TRANSDERM SCH (12:41)
[2018-12-07] MEDS: NICOTINE 21 MG/24 HR PATCH TRANSDERM SCH (12:42)
[2018-12-07] MEDS: LISINOPRIL 5 MG TABLET PO SCH (12:43)
[2018-12-07] MEDS: amLODIPine 10 MG TABLET PO SCH (12:43)
[2018-12-07] MEDS: HYDROmorphone 2 MG/1 ML VIAL IV PRN ×2 (15:12→22:15)
[2018-12-07] MEDS: SODIUM CHLORIDE 0.45% 1,000 ML IV SCH ×2 (15:13)
[2018-12-07] MEDS: AMIODARONE INJ 450 MG in DEXTROSE 5% 241 ML IV SCH (15:14)
[2018-12-07] MEDS: CARVEDILOL 3.125 MG TABLET PO SCH ×2 (17:48→23:11)
[2018-12-07] MEDS: ROSUVASTATIN 10 MG TABLET PO SCH (20:18)
[2018-12-07] MEDS: AMIODARONE 200 MG TABLET PO SCH (20:18)
[2018-12-08] MEDS: NITROPRUSSIDE 100 MG in DEXTROSE 5% 250 ML IV PRN (00:54)
[2018-12-08] MEDS: MORPHINE 4 MG/1 ML VIAL IV PRN ×3 (01:00→21:36)
[2018-12-08] MEDS: AMIODARONE INJ 450 MG in DEXTROSE 5% 241 ML IV SCH ×2 (02:01→17:04)
[2018-12-08] MEDS: INSULIN REGULAR 100 UNIT/ML SUBCUT SCH ×5 (04:56→19:56)
[2018-12-08] MEDS: HYDROmorphone 2 MG/1 ML VIAL IV PRN ×4 (04:56→19:38)
[2018-12-08 05:45] LABS: Albumin 2.9 G/DL (3.4-5.0); Bilirubin,Direct 0.16 MG/DL (0.0-0.20); Bilirubin,Total 1.3 MG/DL (0.2-1.0); Calcium 8.7 MG/DL (8.5-10.1); Osmolality,Calculated 291.4 MOS/KG (273-304); Total Protein 5.8 G/DL (6.4-8.3)
[2018-12-08 05:57] LABS: Basophils % 0.2 % (0.0-0.8); Hemoglobin 10.3 GM/DL (14.0-18.0); Immature Granulocytes % 0.7 %; Immature Granulocytes Absolute 0.12 #; Lymphocytes # 1.9 10*3/uL (1.4-4.0); Lymphocytes % 10.8 % (21.2-54.2); Mean Corpuscular HGB Conc 32.2 GM/DL (32-36); Mean Corpuscular Volume 94.1 FL (87-102); Mean Platelet Volume 12.3 FL (9.6-12.0); Monocytes % 8.7 % (1.7-12.7); Neutrophils % 79.6 % (38.7-73.9); Platelet Count 184 T/CUMM (130-400); Red Cell Distribution Width 12.5 % (9.3-17.3); White Blood Count 17.7 T/CUMM (4-12)
[2018-12-08] MEDS: CARVEDILOL 3.125 MG TABLET PO SCH ×3 (06:15→17:08)
[2018-12-08] MEDS: NICOTINE 21 MG/24 HR PATCH TRANSDERM SCH (08:02)
[2018-12-08] MEDS: amLODIPine 10 MG TABLET PO SCH (08:02)
[2018-12-08] MEDS: AMIODARONE 200 MG TABLET PO SCH ×2 (08:02→21:36)
[2018-12-08] MEDS: LISINOPRIL 5 MG TABLET PO SCH (08:02)
[2018-12-08] MEDS: CHLORHEXIDINE 0.12% ORAL RINSE 60 ML BOTTLE SWISH/SPIT SCH ×2 (08:03→22:41)
[2018-12-08] MEDS: INSULIN LISPRO 100 UNIT/ML SUBCUT SCH ×3 (08:10→17:08)
[2018-12-08] MEDS: ASPIRIN EC 325 MG TABLET PO SCH (10:34)
[2018-12-08] MEDS: LEVALBUTEROL 0.63 MG/3 ML NEB RESP TX SCH ×2 (13:22→19:00)
[2018-12-08] MEDS: INSULIN GLARGINE 100 UNIT/ML SUBCUT SCH (21:36)
[2018-12-08] MEDS: ROSUVASTATIN 10 MG TABLET PO SCH (21:36)
[2018-12-09] MEDS: CARVEDILOL 3.125 MG TABLET PO SCH ×2 (00:20→04:30)
[2018-12-09] MEDS: HYDROmorphone 2 MG/1 ML VIAL IV PRN ×2 (00:23→04:30)
[2018-12-09] MEDS: INSULIN REGULAR 100 UNIT/ML SUBCUT SCH ×6 (00:23→21:43)
[2018-12-09] MEDS: LEVALBUTEROL 0.63 MG/3 ML NEB RESP TX SCH ×4 (01:00→19:25)
[2018-12-09] MEDS: MORPHINE 4 MG/1 ML VIAL IV PRN (03:06)
[2018-12-09 05:17] LABS: Basophils % 0.3 % (0.0-0.8); Eosinophils % 0.2 % (0.00-10.9); Hematocrit 34.7 VOL% (42.0-52.0); Hemoglobin 11.4 GM/DL (14.0-18.0); Immature Granulocytes % 0.7 %; Lymphocytes # 2.5 10*3/uL (1.4-4.0); Lymphocytes % 16.5 % (21.2-54.2); Mean Corpuscular HGB Conc 32.9 GM/DL (32-36); Monocytes % 10.5 % (1.7-12.7); Neutrophils % 71.8 % (38.7-73.9); Platelet Count 192 T/CUMM (130-400); Red Blood Count 3.77 MC/CUMM (3.8-5.5); Red Cell Distribution Width 12.4 % (9.3-17.3); White Blood Count 15.3 T/CUMM (4-12)
[2018-12-09 05:35] LABS: Bilirubin,Direct 0.17 MG/DL (0.0-0.20); Bilirubin,Total 0.9 MG/DL (0.2-1.0); Calcium 8.5 MG/DL (8.5-10.1); Osmolality,Calculated 281.5 MOS/KG (273-304); Total Protein 6.2 G/DL (6.4-8.3)
[2018-12-09] MEDS: LISINOPRIL 5 MG TABLET PO SCH (08:00)
[2018-12-09] MEDS: amLODIPine 10 MG TABLET PO SCH (08:00)
[2018-12-09] MEDS: AMIODARONE INJ 450 MG in DEXTROSE 5% 241 ML IV SCH (08:00)
[2018-12-09] MEDS: NICOTINE 21 MG/24 HR PATCH TRANSDERM SCH (08:00)
[2018-12-09] MEDS: ASPIRIN EC 325 MG TABLET PO SCH (08:00)
[2018-12-09] MEDS: AMIODARONE 200 MG TABLET PO SCH ×2 (08:00→21:44)
[2018-12-09] MEDS: INSULIN LISPRO 100 UNIT/ML SUBCUT SCH ×3 (08:01→16:18)
[2018-12-09] MEDS: POTASSIUM CHLORIDE RIDER 20 MEQ in PREMIX 1 EACH IV PRN (08:01)
[2018-12-09] MEDS: CHLORHEXIDINE 0.12% ORAL RINSE 60 ML BOTTLE SWISH/SPIT SCH ×2 (08:43→21:44)
[2018-12-09] MEDS ORDERED: DOCUSATE SODIUM 100 MG CAPSULE PO PRN (08:55)
[2018-12-09] MEDS: CARVEDILOL 6.25 MG TABLET PO SCH ×2 (09:18→17:36)
[2018-12-09] MEDS ORDERED: MAGNESIUM HYDROXIDE SUSP 30 ML UDCUP PO PRN (12:42)
[2018-12-09] MEDS ORDERED: DEXTROSE 50% 25 GM/50 ML VIAL IV PRN (12:42)
[2018-12-09] MEDS ORDERED: GLUCAGON 1 MG VIAL IM PRN ×2 (12:42)
[2018-12-09] MEDS ORDERED: ZALEPLON 5 MG CAPSULE PO PRN (12:42)
[2018-12-09] MEDS ORDERED: MAGNESIUM SULF RIDER 4 GM in PREMIX 1 EACH IV PRN (12:42)
[2018-12-09] MEDS ORDERED: KETOROLAC 30 MG/1 ML VIAL IV PRN (12:42)
[2018-12-09] MEDS ORDERED: ONDANSETRON 4 MG/2 ML VIAL IV PRN (12:42)
[2018-12-09] MEDS ORDERED: ACETAMINOPHEN 325 MG TABLET PO PRN (12:42)
[2018-12-09] MEDS ORDERED: DEXTROSE 10% 250 ML BAG IV PRN (12:42)
[2018-12-09] MEDS ORDERED: MAGNESIUM SULF RIDER 2 GM in PREMIX 1 EACH IV PRN (12:42)
[2018-12-09] MEDS ORDERED: ALUMINUM/MAGNES/SIMETH MAX STR 30 ML UDCUP PO PRN (12:42)
[2018-12-09] MEDS ORDERED: SODIUM CHLOR 0.45% KCL 20 MEQ 20 MEQ/1,000 ML BAG IV SCH (12:42)
[2018-12-09] MEDS: oxyCODONE/ACETAMINOPHEN 5-325 MG TABLET PO PRN ×2 (13:06→17:50)
[2018-12-09] MEDS: cloNIDine 0.1 MG TABLET PO SCH ×2 (14:54→21:44)
[2018-12-09] MEDS ORDERED: cloNIDine 0.1 MG TABLET PO SCH (15:00)
[2018-12-09] MEDS ORDERED: LACTULOSE 20 GM/30 ML UDCUP PO PRN (18:05)
[2018-12-09] MEDS: HYDROmorphone 2 MG TABLET PO PRN (19:53)
[2018-12-09] MEDS: INSULIN GLARGINE 100 UNIT/ML SUBCUT SCH (21:43)
[2018-12-09] MEDS: ROSUVASTATIN 10 MG TABLET PO SCH (21:44)
[2018-12-10] MEDS: LEVALBUTEROL 0.63 MG/3 ML NEB RESP TX SCH ×4 (00:40→19:29)
[2018-12-10] MEDS: oxyCODONE/ACETAMINOPHEN 5-325 MG TABLET PO PRN ×3 (00:48→15:39)
[2018-12-10] MEDS: INSULIN REGULAR 100 UNIT/ML SUBCUT SCH ×6 (00:48→20:33)
[2018-12-10 05:39] LABS: Basophils % 0.4 % (0.0-0.8); Eosinophils % 0.3 % (0.00-10.9); Hematocrit 32.5 VOL% (42.0-52.0); Hemoglobin 10.8 GM/DL (14.0-18.0); Immature Granulocytes % 0.7 %; Immature Granulocytes Absolute 0.07 #; Lymphocytes # 2.3 10*3/uL (1.4-4.0); Lymphocytes % 23.3 % (21.2-54.2); Mean Corpuscular HGB Conc 33.2 GM/DL (32-36); Mean Corpuscular Volume 92.1 FL (87-102); Mean Platelet Volume 11.6 FL (9.6-12.0); Monocytes % 10.9 % (1.7-12.7); Neutrophils % 64.4 % (38.7-73.9); Platelet Count 220 T/CUMM (130-400); Red Blood Count 3.53 MC/CUMM (3.8-5.5); Red Cell Distribution Width 12.3 % (9.3-17.3)
[2018-12-10 05:51] LABS: Alanine Aminotransferase 37 U/L (16-61); Albumin 2.6 G/DL (3.4-5.0); Alkaline Phosphatase 80 U/L (45-117); Aspartate Amino Transferase 24 U/L (0-37); Bilirubin,Indirect 0.6 MG/DL (0.0-1.0); Blood Urea Nitrogen 19 MG/DL (7-18); Calcium 8.6 MG/DL (8.5-10.1); Glucose 124 MG/DL (74-106); Osmolality,Calculated 283.3 MOS/KG (273-304); Total Protein 5.9 G/DL (6.4-8.3)
[2018-12-10 05:55] LABS: Troponin I 0.211 NG/ML (0.00-0.045)
[2018-12-10] MEDS ORDERED: FUROSEMIDE 40 MG/4 ML VIAL IV ONE (06:00)
[2018-12-10] MEDS: INSULIN LISPRO 100 UNIT/ML SUBCUT SCH ×4 (08:26→16:21)
[2018-12-10] MEDS: fentaNYL 50 MCG/HR PATCH TRANSDERM SCH (09:52)
[2018-12-10] MEDS: NICOTINE 21 MG/24 HR PATCH TRANSDERM SCH (09:52)
[2018-12-10] MEDS: ASPIRIN EC 325 MG TABLET PO SCH (09:53)
[2018-12-10] MEDS: HYDROmorphone 2 MG TABLET PO PRN ×2 (09:53→20:38)
[2018-12-10] MEDS: PANTOPRAZOLE 40 MG TABLET PO SCH (09:55)
[2018-12-10] MEDS: DOCUSATE SODIUM 100 MG CAPSULE PO SCH (09:55)
[2018-12-10] MEDS: CARVEDILOL 12.5 MG TABLET PO SCH ×2 (09:55→16:14)
[2018-12-10] MEDS: AMIODARONE 200 MG TABLET PO SCH ×2 (09:55→20:32)
[2018-12-10] MEDS: amLODIPine 10 MG TABLET PO SCH (09:55)
[2018-12-10] MEDS: cloNIDine 0.1 MG TABLET PO SCH ×3 (09:55→20:32)
[2018-12-10] MEDS: FERROUS SULFATE 325 MG TABLET PO SCH (09:55)
[2018-12-10] MEDS: LISINOPRIL 5 MG TABLET PO SCH (09:56)
[2018-12-10] MEDS: POTASSIUM CHLORIDE 20 MEQ TABLET PO PRN (09:56)
[2018-12-10] MEDS: CHLORHEXIDINE 0.12% ORAL RINSE 60 ML BOTTLE SWISH/SPIT SCH ×2 (09:57→21:11)
[2018-12-10] MEDS: ROSUVASTATIN 10 MG TABLET PO SCH (20:32)
[2018-12-10] MEDS: INSULIN GLARGINE 100 UNIT/ML SUBCUT SCH (21:10)
[2018-12-11] MEDS: LEVALBUTEROL 0.63 MG/3 ML NEB RESP TX SCH ×4 (00:30→19:48)
[2018-12-11 05:16] LABS: Basophils % 0.4 % (0.0-0.8); Eosinophils # 0.2 10*3/uL (0.0-0.87); Eosinophils % 1.7 % (0.00-10.9); Hematocrit 30.4 VOL% (42.0-52.0); Hemoglobin 10.1 GM/DL (14.0-18.0); Immature Granulocytes % 1.1 %; Immature Granulocytes Absolute 0.11 #; Lymphocytes # 2.7 10*3/uL (1.4-4.0); Mean Corpuscular HGB Conc 33.2 GM/DL (32-36); Mean Corpuscular Volume 92.4 FL (87-102); Mean Platelet Volume 11.3 FL (9.6-12.0); Monocytes % 9.6 % (1.7-12.7); Neutrophils % 60.2 % (38.7-73.9); Platelet Count 231 T/CUMM (130-400); Red Blood Count 3.29 MC/CUMM (3.8-5.5); Red Cell Distribution Width 12.2 % (9.3-17.3); White Blood Count 9.9 T/CUMM (4-12)
[2018-12-11 05:32] LABS: Alanine Aminotransferase 29 U/L (16-61); Albumin 2.4 G/DL (3.4-5.0); Alkaline Phosphatase 76 U/L (45-117); Aspartate Amino Transferase 13 U/L (0-37); Bilirubin,Indirect 0.5 MG/DL (0.0-1.0); Blood Urea Nitrogen 18 MG/DL (7-18); Calcium 8.4 MG/DL (8.5-10.1); Glucose 179 MG/DL (74-106); Osmolality,Calculated 284.4 MOS/KG (273-304); Total Protein 5.7 G/DL (6.4-8.3)
[2018-12-11 05:34] LABS: Troponin I 0.106 NG/ML (0.00-0.045)
[2018-12-11] MEDS: POTASSIUM CHLORIDE 20 MEQ TABLET PO PRN ×2 (06:07→08:42)
[2018-12-11] MEDS: INSULIN LISPRO 100 UNIT/ML SUBCUT SCH ×3 (08:41→17:24)
[2018-12-11] MEDS: PANTOPRAZOLE 40 MG TABLET PO SCH (08:42)
[2018-12-11] MEDS: FERROUS SULFATE 325 MG TABLET PO SCH (08:42)
[2018-12-11] MEDS: LISINOPRIL 5 MG TABLET PO SCH (08:42)
[2018-12-11] MEDS: ASPIRIN EC 325 MG TABLET PO SCH (08:42)
[2018-12-11] MEDS: CARVEDILOL 12.5 MG TABLET PO SCH ×2 (08:42→17:24)
[2018-12-11] MEDS: amLODIPine 10 MG TABLET PO SCH (08:42)
[2018-12-11] MEDS: DOCUSATE SODIUM 100 MG CAPSULE PO SCH (08:42)
[2018-12-11] MEDS: AMIODARONE 200 MG TABLET PO SCH ×2 (08:42→22:24)
[2018-12-11] MEDS: INSULIN REGULAR 100 UNIT/ML SUBCUT SCH ×4 (08:42→22:36)
[2018-12-11] MEDS: cloNIDine 0.1 MG TABLET PO SCH ×3 (08:42→22:26)
[2018-12-11] MEDS: HYDROmorphone 2 MG TABLET PO PRN ×2 (08:43→22:34)
[2018-12-11] MEDS: NICOTINE 21 MG/24 HR PATCH TRANSDERM SCH (11:03)
[2018-12-11] MEDS: CHLORHEXIDINE 0.12% ORAL RINSE 60 ML BOTTLE SWISH/SPIT SCH ×2 (11:03→22:29)
[2018-12-11] MEDS: oxyCODONE/ACETAMINOPHEN 5-325 MG TABLET PO PRN ×2 (14:05→19:43)
[2018-12-11] MEDS: ROSUVASTATIN 10 MG TABLET PO SCH (22:23)
[2018-12-11] MEDS: INSULIN GLARGINE 100 UNIT/ML SUBCUT SCH (22:36)
[2018-12-12] MEDS: LEVALBUTEROL 0.63 MG/3 ML NEB RESP TX SCH ×4 (00:50→20:02)
[2018-12-12] MEDS: oxyCODONE/ACETAMINOPHEN 5-325 MG TABLET PO PRN ×3 (05:30→21:06)
[2018-12-12] MEDS: INSULIN REGULAR 100 UNIT/ML SUBCUT SCH ×4 (08:51→21:05)
[2018-12-12] MEDS: INSULIN LISPRO 100 UNIT/ML SUBCUT SCH ×3 (08:52→16:43)
[2018-12-12] MEDS: NICOTINE 21 MG/24 HR PATCH TRANSDERM SCH (08:54)
[2018-12-12] MEDS: amLODIPine 10 MG TABLET PO SCH (08:54)
[2018-12-12] MEDS: LISINOPRIL 5 MG TABLET PO SCH (08:55)
[2018-12-12] MEDS: DOCUSATE SODIUM 100 MG CAPSULE PO SCH (08:55)
[2018-12-12] MEDS: CARVEDILOL 12.5 MG TABLET PO SCH ×2 (08:55→16:42)
[2018-12-12] MEDS: FERROUS SULFATE 325 MG TABLET PO SCH (08:55)
[2018-12-12] MEDS: ASPIRIN EC 325 MG TABLET PO SCH (08:55)
[2018-12-12] MEDS: cloNIDine 0.1 MG TABLET PO SCH ×2 (08:55→14:38)
[2018-12-12] MEDS: PANTOPRAZOLE 40 MG TABLET PO SCH (08:55)
[2018-12-12] MEDS: AMIODARONE 200 MG TABLET PO SCH ×2 (09:02→21:05)
[2018-12-12] MEDS: CHLORHEXIDINE 0.12% ORAL RINSE 60 ML BOTTLE SWISH/SPIT SCH ×2 (09:08→21:07)
[2018-12-12] MEDS: HYDROmorphone 2 MG TABLET PO PRN ×2 (10:44→23:18)
[2018-12-12] MEDS ORDERED: cloNIDine 0.1 MG TABLET PO SCH (21:00)
[2018-12-12] MEDS: ROSUVASTATIN 10 MG TABLET PO SCH (21:05)
[2018-12-12] MEDS: INSULIN GLARGINE 100 UNIT/ML SUBCUT SCH (21:06)
[2018-12-13] MEDS: LEVALBUTEROL 0.63 MG/3 ML NEB RESP TX SCH ×2 (01:01→07:11)
[2018-12-13 04:36] LABS: Basophils # 0.1 10*3/uL (0.0-0.2); Basophils % 0.8 % (0.0-0.8); Eosinophils # 0.4 10*3/uL (0.0-0.87); Eosinophils % 4.2 % (0.00-10.9); Hematocrit 30.9 VOL% (42.0-52.0); Hemoglobin 9.9 GM/DL (14.0-18.0); Immature Granulocytes % 1.4 %; Immature Granulocytes Absolute 0.14 #; Lymphocytes # 3.4 10*3/uL (1.4-4.0); Lymphocytes % 34.3 % (21.2-54.2); Mean Corpuscular Volume 93.1 FL (87-102); Mean Platelet Volume 10.8 FL (9.6-12.0); Monocytes % 8.6 % (1.7-12.7); Neutrophils % 50.7 % (38.7-73.9); Platelet Count 309 T/CUMM (130-400); Red Blood Count 3.32 MC/CUMM (3.8-5.5); Red Cell Distribution Width 12.5 % (9.3-17.3)
[2018-12-13 05:03] LABS: Alanine Aminotransferase 29 U/L (16-61); Albumin 2.5 G/DL (3.4-5.0); Alkaline Phosphatase 94 U/L (45-117); Aspartate Amino Transferase 13 U/L (0-37); Bilirubin,Indirect 0.3 MG/DL (0.0-1.0); Blood Urea Nitrogen 15 MG/DL (7-18); Calcium 8.6 MG/DL (8.5-10.1); Glucose 139 MG/DL (74-106); Osmolality,Calculated 281.4 MOS/KG (273-304); Total Protein 5.9 G/DL (6.4-8.3); Troponin I 0.053 NG/ML (0.00-0.045)
[2018-12-13 07:59] VITALS: BP 143/80
[2018-12-13] MEDS ORDERED: LISINOPRIL 2.5 MG TABLET PO SCH (09:00)
[2018-12-13] MEDS ORDERED: CARVEDILOL 25 MG TABLET PO SCH (09:00)
[2018-12-13] MEDS ORDERED: LISINOPRIL 10 MG TABLET PO SCH (09:00)
[2018-12-13] MEDS: INSULIN REGULAR 100 UNIT/ML SUBCUT SCH (09:02)
[2018-12-13] MEDS: INSULIN LISPRO 100 UNIT/ML SUBCUT SCH (09:02)
[2018-12-13] MEDS: PANTOPRAZOLE 40 MG TABLET PO SCH (09:03)
[2018-12-13] MEDS: NICOTINE 21 MG/24 HR PATCH TRANSDERM SCH (09:03)
[2018-12-13] MEDS: FERROUS SULFATE 325 MG TABLET PO SCH (09:04)
[2018-12-13] MEDS: DOCUSATE SODIUM 100 MG CAPSULE PO SCH (09:04)
[2018-12-13] MEDS: CHLORHEXIDINE 0.12% ORAL RINSE 60 ML BOTTLE SWISH/SPIT SCH (09:04)
[2018-12-13] MEDS: ASPIRIN EC 325 MG TABLET PO SCH (09:04)
[2018-12-13] MEDS: CARVEDILOL 12.5 MG TABLET PO SCH (09:10)
[2018-12-13] MEDS: HYDROmorphone 2 MG TABLET PO PRN (09:28)
[2018-12-13] MEDS: fentaNYL 50 MCG/HR PATCH TRANSDERM SCH (09:29)
== END 2018-12-13 12:45 | disposition home health service (06) | DRG 166 ==
LOC: N.ED 12:04 → N.EDINP 12:04 → N.2E 16:28 → SUATTDRO 11-30 15:17 → N.2E 12-05 17:14 → N.CVR 12-06 09:32 → N.ICU 12-07 09:38 → N.TELES 12-09 12:15
PROVIDERS: ADMIT Internal Medicine; ATTEND Internal Medicine
PROC: CLCCHCL (ICD-10-PCS; 2018-12-01 15:45)

== ENCOUNTER 2022-04-07 07:07 | Inpatient (IN) ==
[2022-04-01 12:53] LABS: Basophils # 0.1 10*3/uL (0.0-0.2); Basophils % 1.3 % (0.0-0.8); Eosinophils # 0.3 10*3/uL (0.0-0.87); Hemoglobin 13.8 GM/DL (14.0-18.0); Immature Granulocytes % 0.5 %; Immature Granulocytes Absolute 0.04 #; Lymphocytes % 35.1 % (21.2-54.2); Mean Corpuscular HGB Conc 33.7 GM/DL (32-36); Mean Corpuscular Volume 90.1 FL (87-102); Mean Platelet Volume 11.2 FL (9.6-12.0); Monocytes # 0.7 10*3/uL (0.11-0.8); Monocytes % 8.1 % (1.7-12.7); Platelet Count 310 T/CUMM (130-400); Red Blood Count 4.55 MC/CUMM (3.8-5.5); Red Cell Distribution Width 13.2 % (9.3-17.3); White Blood Count 8.5 T/CUMM (4-12)
[2022-04-01 13:07] LABS: INR 0.9; PT Patient Result 9.9 SECS (10.1-12.1)
[2022-04-01 13:09] LABS: Alanine Aminotransferase 27 U/L (16-61); Albumin 3.8 G/DL (3.4-5.0); Alkaline Phosphatase 120 U/L (45-117); Aspartate Amino Transferase 13 U/L (0-37); Bilirubin,Total < 0.39 MG/DL (0.20-1.00); Blood Urea Nitrogen 26 MG/DL (7-18); Calcium 9.6 MG/DL (8.5-10.1); Carbon Dioxide 27 MMOL/L (21-32); Chloride 104 MMOL/L (98-107); Glucose 329 MG/DL (74-106); Potassium 5.2 MMOL/L (3.5-5.1); Sodium 136 MMOL/L (136-145); Total Protein 7.2 G/DL (6.4-8.2)
[~2022-04-07 07:07] MED LIST: HEPARIN/NACL 0.9% 2 UNITS/ML 1,000 UNIT/500 ML BAG IV ONE; LACTATED RINGERS 1,000 ML IV SCH; LIDOCAINE 1% 5 ML VIAL ONE; NITROGLYCERIN DRIP 50 MG/250 ML BOTTLE IV ONE; PHENYLEPHRINE DRIP 20 MG/250 ML PREMIX IV ONE
[2022-04-07] MEDS ORDERED: ETOMIDATE 40 MG/20 ML VIAL IV ONE (07:52)
[2022-04-07] MEDS ORDERED: LIDOCAINE 2% 5 ML VIAL ONE (07:52)
[2022-04-07] MEDS ORDERED: propofoL 200 MG/20 ML VIAL IV ONE (07:52)
[2022-04-07] MEDS ORDERED: ROCURONIUM 50 MG/5 ML VIAL IV ONE (07:52)
[2022-04-07] MEDS ORDERED: fentaNYL 100 MCG/2 ML VIAL ONE (07:53)
[2022-04-07] MEDS ORDERED: MIDAZOLAM 2 MG/2 ML VIAL ONE (07:53)
[2022-04-07] MEDS ORDERED: LIDOCAINE 1% 5 ML VIAL ONE ×2 (07:58→08:41)
[2022-04-07] MEDS ORDERED: HEPARIN 5,000 UNIT/1 ML VIAL ONE (08:41)
[2022-04-07] MEDS ORDERED: DEXAMETHASONE 4 MG/1 ML VIAL ONE (10:35)
[2022-04-07] MEDS ORDERED: ONDANSETRON 4 MG/2 ML VIAL ONE (10:35)
[2022-04-07] MEDS ORDERED: HEPARIN 10,000 UNIT/10 ML VIAL ONE (10:36)
[2022-04-07] MEDS ORDERED: ePHEDrine 50 MG/ML VIAL ONE (10:43)
[2022-04-07] MEDS ORDERED: SODIUM CHLORIDE 0.9% 1,000 ML IV ONE (10:50)
[2022-04-07] MEDS ORDERED: SEVOFLURANE 1 UNIT/15 MINUTE INH ONE (10:50)
[2022-04-07] MEDS ORDERED: GLYCOPYRROLATE 0.4 MG/2 ML VIAL ONE ×3 (10:50→10:52)
[2022-04-07] MEDS ORDERED: NEOSTIGMINE 10 MG/10 ML VIAL ONE (10:52)
[2022-04-07] MEDS ORDERED: PROTAMINE SULFATE 50 MG/5 ML VIAL IV ONE (11:14)
[2022-04-07] MEDS ORDERED: LACTATED RINGERS 2,000 ML IV ONE (11:17)
[2022-04-07] MEDS ORDERED: PHENYLEPHRINE 1 MG/10 ML SYRINGE IV ONE (11:28)
[2022-04-07] MEDS ORDERED: NITROPRUSSIDE 100 MG in DEXTROSE 5% 250 ML IV PRN (11:31)
[2022-04-07] MEDS ORDERED: PHENYLEPHRINE DRIP 40 MG/250 ML PREMIX IV PRN (11:31)
[2022-04-07] MEDS ORDERED: ONDANSETRON 4 MG/2 ML VIAL IV PRN (11:31)
[2022-04-07] MEDS ORDERED: PROMETHAZINE 25 MG/1 ML VIAL IM PRN (11:31)
[2022-04-07] MEDS ORDERED: oxyCODONE/ACETAMINOPHEN 5-325 MG TABLET PO PRN ×2 (11:31)
[2022-04-07] MEDS ORDERED: NALOXONE 0.4 MG/ML VIAL IV PRN (11:31)
[2022-04-07] MEDS ORDERED: ALBUTEROL/IPRATROPIUM 3 ML NEB RESP TX ONE (11:34)
[2022-04-07] MEDS ORDERED: ACETAMINOPHEN 500 MG TABLET PO PRN (11:34)
[2022-04-07] MEDS ORDERED: fentaNYL 50 MCG/HR PATCH TRANSDERM SCH (12:00)
[2022-04-07] MEDS: HYDROmorphone 1 MG/1 ML SYRINGE IV PRN ×5 (12:04→23:24)
[2022-04-07] MEDS: LACTATED RINGERS 1,000 ML IV SCH ×2 (12:30→22:12)
[2022-04-07 13:04] VITALS: BP 169/85
[2022-04-07] MEDS ORDERED: INFLUENZA VIRUS VACCINE 0.5 ML SYRINGE IM ONE (13:13)
[2022-04-07] MEDS: INSULIN LISPRO PROTAMINE/LISPRO 75/25 100 UNIT/ML SUBCUT SCH ×2 (14:22→16:05)
[2022-04-07] MEDS: carvediloL 12.5 MG TABLET PO SCH (16:05)
[2022-04-07] MEDS ORDERED: NICOTINE 21 MG/24 HR PATCH TRANSDERM PRN (19:22)
[2022-04-07] MEDS: HYDROmorphone 2 MG TABLET PO PRN (21:21)
[2022-04-08] MEDS: HYDROmorphone 1 MG/1 ML SYRINGE IV PRN ×4 (02:02→04:43)
[2022-04-08] MEDS: carvediloL 12.5 MG TABLET PO SCH (07:11)
[2022-04-08] MEDS: HYDROmorphone 2 MG TABLET PO PRN ×2 (07:11→11:07)
[2022-04-08] MEDS: INSULIN LISPRO PROTAMINE/LISPRO 75/25 100 UNIT/ML SUBCUT SCH ×2 (07:15→11:03)
[2022-04-08] MEDS: LACTATED RINGERS 1,000 ML IV SCH (08:47)
[2022-04-08] MEDS ORDERED: CLOPIDOGREL 75 MG TABLET PO SCH (09:00)
[2022-04-08] MEDS ORDERED: lisinopriL 20 MG TABLET PO SCH (09:00)
[2022-04-08] MEDS ORDERED: amLODIPine 10 MG TABLET PO SCH (09:00)
[2022-04-08] MEDS ORDERED: ATORVASTATIN 40 MG TABLET PO SCH (09:00)
[2022-04-08] MEDS ORDERED: ASPIRIN EC 81 MG TABLET PO SCH ×2 (09:00)
== END 2022-04-08 12:30 | disposition home or self-care (01) | DRG 24 ==
LOC: N.SDSINP 07:07 → EDSTATUS 10:00 → N.CC 12:31
PROVIDERS: ADMIT Surgery; ATTEND Surgery

== ENCOUNTER 2022-04-13 13:54 | Inpatient (IN) ==
[2022-04-13] MEDS ORDERED: SODIUM CHLORIDE 0.9% 1,000 ML IV STA (14:19)
[2022-04-13 14:36] LABS: Basophils # 0.2 10*3/uL (0.0-0.2); Basophils % 1.1 % (0.0-0.8); Hematocrit 45.5 VOL% (42.0-52.0); Immature Granulocytes Absolute 0.41 #; Lymphocytes # 1.5 10*3/uL (1.4-4.0); Lymphocytes % 7.2 % (21.2-54.2); Mean Corpuscular HGB Conc 30.8 GM/DL (32-36); Mean Corpuscular Volume 96.6 FL (87-102); Mean Platelet Volume 11.8 FL (9.6-12.0); Monocytes # 0.6 10*3/uL (0.11-0.8); Neutrophils % 86.7 % (38.7-73.9); Platelet Count 488 T/CUMM (130-400); Red Blood Count 4.71 MC/CUMM (3.8-5.5); Red Cell Distribution Width 12.5 % (9.3-17.3); White Blood Count 20.8 T/CUMM (4-12)
[2022-04-13 14:55] LABS: Albumin 3.6 G/DL (3.4-5.0); Bilirubin,Total 0.7 MG/DL (0.20-1.00); Calcium 9.1 MG/DL (8.5-10.1); Osmolality,Calculated 313.5 MOS/KG (273-304); Total Protein 7.7 G/DL (6.4-8.2)
[2022-04-13 15:00] LABS: Arterial Base Excess iSTAT -25 MMOL/L (-2.5-2.5); Arterial Bicarbonate iSTAT 2.5 MMOL/L (20-26); Arterial O2 Saturation iSTAT 98 % (95-100); Arterial PCO2 iSTAT 8 MM HG (35-48); Arterial PO2 iSTAT 139 MM HG (80-95); Arterial Total CO2 iSTAT < 5 MMO/L (23-27); Arterial pH iSTAT 7.094 (7.35-7.45)
[2022-04-13] MEDS ORDERED: INSULIN REGULAR 100 UNIT/ML IV STA (15:03)
[2022-04-13] MEDS ORDERED: ALBUTEROL 2.5 MG/3 ML NEB RESP TX PRN (15:07)
[2022-04-13 15:08] LABS: Band Neutrophils 2 % (0-10); Lymphocytes 10 % (20-55); Total Cells Counted 100
[2022-04-13] MEDS ORDERED: ONDANSETRON 4 MG/2 ML VIAL IV PRN (15:08)
[2022-04-13 15:09] LABS: Platelet Estimate Normal
[2022-04-13 15:11] LABS: Potassium 6.7 MMOL/L (3.5-5.1)
[2022-04-13] MEDS ORDERED: MAGNESIUM SULF RIDER 4 GM/100 ML PREMIX IV PRN (15:11)
[2022-04-13] MEDS ORDERED: MAGNESIUM SULF RIDER 2 GM/50 ML PREMIX IV PRN (15:11)
[2022-04-13] MEDS ORDERED: SODIUM CHLORIDE 0.9% 1,000 ML IV ONE (15:11)
[2022-04-13] MEDS ORDERED: SODIUM PHOSPHATE INJ 23.3 MMOL in SODIUM CHLORIDE 0.9% 250 ML IV PRN (15:11)
[2022-04-13] MEDS ORDERED: SODIUM BICARB INJ 100 MEQ in STERILE WATER INJ 400 ML IV PRN (15:11)
[2022-04-13] MEDS ORDERED: INSULIN REGULAR 100 UNIT/ML IV ONE (15:11)
[2022-04-13] MEDS ORDERED: DEXTROSE 50% 25 GM/50 ML SYRINGE IV PRN ×2 (15:24)
[2022-04-13 15:30] LABS: Phosphorous 8.9 MG/DL (2.5-4.9)
[2022-04-13] MEDS: INSULIN REGULAR DRIP 100 ML IV SCH (15:43)
[2022-04-13] MEDS: PANTOPRAZOLE 40 MG VIAL IV SCH (15:53)
[2022-04-13] MEDS: ENOXAPARIN 40 MG/0.4 ML SYRINGE SUBCUT SCH (15:53)
[2022-04-13] MEDS ORDERED: NICOTINE 14 MG/24 HR PATCH TRANSDERM PRN (16:01)
[2022-04-13] MEDS ORDERED: HYDROmorphone 1 MG/1 ML SYRINGE IM STA (16:06)
[2022-04-13 16:26] LABS: Barbiturates Screen,Urine Negative (Negative); Benzodiazepines Screen,Urine Negative (Negative); Cannabinoid Screen,Urine Negative (Negative); Opiate Screen,Urine Positive (Negative); Phencyclidine Screen,Urine Negative (Negative)
[2022-04-13] MEDS ORDERED: COCAINE SUBSTITUTE 30 ML BOTTLE TOP ONE (16:45)
[2022-04-13] MEDS: amLODIPine 10 MG TABLET PO SCH (17:08)
[2022-04-13 17:30] LABS: Calcium 8.2 MG/DL (8.5-10.1); Osmolality,Calculated 312.4 MOS/KG (273-304)
[2022-04-13 17:55] LABS: Potassium 6.5 MMOL/L (3.5-5.1)
[2022-04-13 18:00] VITALS: BP 104/74
[2022-04-13] MEDS ORDERED: METOPROLOL TARTRATE 5 MG/5 ML VIAL IV SCH (18:00)
[2022-04-13] MEDS: fentaNYL 50 MCG/HR PATCH TRANSDERM SCH (18:10)
[2022-04-13] MEDS: SODIUM CHLORIDE 0.9% 1,000 ML IV SCH ×5 (18:12→22:59)
[2022-04-13] MEDS ORDERED: ACETAMINOPHEN 500 MG TABLET PO PRN (18:25)
[2022-04-13] MEDS ORDERED: METOPROLOL TARTRATE 5 MG/5 ML VIAL IV PRN (18:30)
[2022-04-13] MEDS ORDERED: SODIUM BICARBONATE 50 MEQ/50 ML VIAL IV ONE (19:00)
[2022-04-13] MEDS: MORPHINE 2 MG/1 ML SYRINGE IV PRN (19:46)
[2022-04-13] MEDS: carvediloL 12.5 MG TABLET PO SCH (20:49)
[2022-04-13] MEDS: HYDROmorphone 2 MG TABLET PO SCH (20:50)
[2022-04-13 23:49] LABS: Calcium 7.4 MG/DL (8.5-10.1); Osmolality,Calculated 305.5 MOS/KG (273-304); Potassium 5.8 MMOL/L (3.5-5.1)
[2022-04-14] MEDS: MORPHINE 2 MG/1 ML SYRINGE IV PRN ×5 (00:25→22:34)
[2022-04-14 00:59] LABS: Arterial Base Excess iSTAT -20 MMOL/L (-2.5-2.5); Arterial Bicarbonate iSTAT 5.9 MMOL/L (20-26); Arterial O2 Saturation iSTAT 97 % (95-100); Arterial PCO2 iSTAT 15 MM HG (35-48); Arterial PO2 iSTAT 103 MM HG (80-95); Arterial Total CO2 iSTAT 6 MMO/L (23-27)
[2022-04-14 03:30] LABS: Basophils # 0.1 10*3/uL (0.0-0.2); Basophils % 0.3 % (0.0-0.8); Hematocrit 33.1 VOL% (42.0-52.0); Immature Granulocytes % 1.9 %; Immature Granulocytes Absolute 0.27 #; Lymphocytes # 2.3 10*3/uL (1.4-4.0); Lymphocytes % 16.1 % (21.2-54.2); Mean Corpuscular HGB Conc 32.9 GM/DL (32-36); Mean Corpuscular Volume 89.7 FL (87-102); Mean Platelet Volume 11.3 FL (9.6-12.0); Neutrophils % 74.7 % (38.7-73.9); Red Cell Distribution Width 12.5 % (9.3-17.3)
[2022-04-14] MEDS: SODIUM CHLORIDE 0.9% 1,000 ML IV SCH ×5 (03:30→21:53)
[2022-04-14 03:43] LABS: Hemoglobin 10.9 GM/DL (14.0-18.0); Platelet Count 305 T/CUMM (130-400); Red Blood Count 3.69 MC/CUMM (3.8-5.5); White Blood Count 14.4 T/CUMM (4-12)
[2022-04-14 03:56] LABS: Albumin 2.6 G/DL (3.4-5.0); Bilirubin,Total 0.4 MG/DL (0.20-1.00); Calcium 7.8 MG/DL (8.5-10.1); Osmolality,Calculated 304.2 MOS/KG (273-304); Potassium 5.1 MMOL/L (3.5-5.1); Thyroid Stimulating Hormone 0.068 uIU/ml (0.358-3.74); Total Protein 5.9 G/DL (6.4-8.2)
[2022-04-14 04:00] LABS: Arterial Base Excess iSTAT -16 MMOL/L (-2.5-2.5); Arterial Bicarbonate iSTAT 8.7 MMOL/L (20-26); Arterial O2 Saturation iSTAT 97 % (95-100); Arterial PCO2 iSTAT 19 MM HG (35-48); Arterial PO2 iSTAT 96 MM HG (80-95); Arterial Total CO2 iSTAT 9 MMO/L (23-27); Arterial pH iSTAT 7.266 (7.35-7.45)
[2022-04-14 06:34] LABS: Calcium 8.2 MG/DL (8.5-10.1); Potassium 4.8 MMOL/L (3.5-5.1)
[2022-04-14] MEDS: ASPIRIN EC 81 MG TABLET PO SCH (08:15)
[2022-04-14] MEDS: CLOPIDOGREL 75 MG TABLET PO SCH (08:16)
[2022-04-14] MEDS: ATORVASTATIN 40 MG TABLET PO SCH (08:16)
[2022-04-14] MEDS: amLODIPine 10 MG TABLET PO SCH (08:16)
[2022-04-14] MEDS: HYDROmorphone 2 MG TABLET PO SCH ×3 (08:16→21:38)
[2022-04-14] MEDS: carvediloL 12.5 MG TABLET PO SCH ×2 (08:16→21:38)
[2022-04-14] MEDS ORDERED: GLUCAGON 1 MG VIAL IM PRN (09:35)
[2022-04-14] MEDS: SODIUM CHLORIDE 0.45% 1,000 ML IV SCH ×2 (09:38→16:33)
[2022-04-14 12:28] LABS: Calcium 8.3 MG/DL (8.5-10.1); Osmolality,Calculated 297.5 MOS/KG (273-304); Potassium 4.2 MMOL/L (3.5-5.1)
[2022-04-14] MEDS: ENOXAPARIN 40 MG/0.4 ML SYRINGE SUBCUT SCH (16:32)
[2022-04-14] MEDS: INSULIN REGULAR DRIP 100 ML IV SCH (16:32)
[2022-04-14] MEDS: PANTOPRAZOLE 40 MG VIAL IV SCH (16:33)
[2022-04-14 18:27] LABS: Calcium 8.2 MG/DL (8.5-10.1); Osmolality,Calculated 291.3 MOS/KG (273-304); Potassium 3.9 MMOL/L (3.5-5.1)
[2022-04-14 20:15] LABS: Calcium 8.2 MG/DL (8.5-10.1); Osmolality,Calculated 291.3 MOS/KG (273-304); Potassium 3.6 MMOL/L (3.5-5.1)
[2022-04-14] MEDS ORDERED: SODIUM CHLOR 0.45% KCL 20 MEQ 20 MEQ/1,000 ML BAG IV SCH (20:30)
[2022-04-14] MEDS ORDERED: DEXT 5% NACL 0.45% KCL 20 MEQ 20 MEQ/1,000 ML BAG IV SCH (23:00)
[2022-04-15 00:17] LABS: Calcium 8.2 MG/DL (8.5-10.1); Osmolality,Calculated 284.3 MOS/KG (273-304); Potassium 3.6 MMOL/L (3.5-5.1)
[2022-04-15] MEDS: INSULIN REGULAR DRIP 100 ML IV SCH ×2 (00:48→16:48)
[2022-04-15] MEDS: MORPHINE 2 MG/1 ML SYRINGE IV PRN ×6 (02:02→22:55)
[2022-04-15 04:08] LABS: Basophils # 0.1 10*3/uL (0.0-0.2); Basophils % 0.4 % (0.0-0.8); Eosinophils # 0.1 10*3/uL (0.0-0.87); Eosinophils % 0.5 % (0.00-10.9); Hematocrit 31.9 VOL% (42.0-52.0); Hemoglobin 10.9 GM/DL (14.0-18.0); Immature Granulocytes % 0.5 %; Immature Granulocytes Absolute 0.06 #; Lymphocytes # 3.5 10*3/uL (1.4-4.0); Lymphocytes % 30.1 % (21.2-54.2); Mean Corpuscular HGB Conc 34.2 GM/DL (32-36); Mean Corpuscular Volume 87.4 FL (87-102); Mean Platelet Volume 10.1 FL (9.6-12.0); Monocytes # 0.9 10*3/uL (0.11-0.8); Monocytes % 7.5 % (1.7-12.7); Platelet Count 251 T/CUMM (130-400); Red Blood Count 3.65 MC/CUMM (3.8-5.5); Red Cell Distribution Width 12.9 % (9.3-17.3); White Blood Count 11.5 T/CUMM (4-12)
[2022-04-15 04:27] LABS: Calcium 8.5 MG/DL (8.5-10.1); Osmolality,Calculated 280.4 MOS/KG (273-304); Potassium 3.2 MMOL/L (3.5-5.1)
[2022-04-15] MEDS: POTASSIUM CHLORIDE RIDER 10 MEQ/100 ML PREMIX IV PRN ×3 (04:47→07:01)
[2022-04-15] MEDS: SODIUM CHLOR 0.45% KCL 20 MEQ 20 MEQ/1,000 ML BAG IV SCH ×2 (05:21→14:51)
[2022-04-15] MEDS ORDERED: INSULIN REGULAR 100 UNIT/ML SUBCUT SCH (07:30)
[2022-04-15] MEDS: INSULIN REGULAR 100 UNIT/ML SUBCUT SCH ×5 (08:05→23:27)
[2022-04-15] MEDS: ASPIRIN EC 81 MG TABLET PO SCH (08:06)
[2022-04-15] MEDS: ATORVASTATIN 40 MG TABLET PO SCH (08:06)
[2022-04-15] MEDS: HYDROmorphone 2 MG TABLET PO SCH ×3 (08:06→20:30)
[2022-04-15] MEDS: carvediloL 12.5 MG TABLET PO SCH ×2 (08:06→20:29)
[2022-04-15] MEDS: amLODIPine 10 MG TABLET PO SCH (08:07)
[2022-04-15] MEDS: CLOPIDOGREL 75 MG TABLET PO SCH (08:07)
[2022-04-15 10:51] LABS: Calcium 8.4 MG/DL (8.5-10.1); Potassium 4.8 MMOL/L (3.5-5.1)
[2022-04-15] MEDS: INSULIN LISPRO PROTAMINE/LISPRO 75/25 100 UNIT/ML SUBCUT SCH ×2 (12:16→18:18)
[2022-04-15] MEDS: PANTOPRAZOLE 40 MG VIAL IV SCH (15:47)
[2022-04-15] MEDS: ENOXAPARIN 40 MG/0.4 ML SYRINGE SUBCUT SCH (15:47)
[2022-04-15] MEDS ORDERED: INSULIN GLARGINE 100 UNIT/ML SUBCUT SCH (21:00)
[2022-04-16] MEDS: MORPHINE 2 MG/1 ML SYRINGE IV PRN ×2 (02:25→05:54)
[2022-04-16 05:17] LABS: Calcium 8.8 MG/DL (8.5-10.1); Osmolality,Calculated 279.1 MOS/KG (273-304); Potassium 3.3 MMOL/L (3.5-5.1)
[2022-04-16] MEDS: INSULIN REGULAR 100 UNIT/ML SUBCUT SCH ×3 (05:25→12:33)
[2022-04-16] MEDS ORDERED: POTASSIUM CHLORIDE 20 MEQ TABLET PO ONE (08:01)
[2022-04-16] MEDS: HYDROmorphone 2 MG TABLET PO SCH (08:48)
[2022-04-16] MEDS: CLOPIDOGREL 75 MG TABLET PO SCH (08:48)
[2022-04-16] MEDS: INSULIN LISPRO PROTAMINE/LISPRO 75/25 100 UNIT/ML SUBCUT SCH ×2 (08:48→12:33)
[2022-04-16] MEDS: ASPIRIN EC 81 MG TABLET PO SCH (08:49)
[2022-04-16] MEDS: amLODIPine 10 MG TABLET PO SCH (08:49)
[2022-04-16] MEDS: ATORVASTATIN 40 MG TABLET PO SCH (08:49)
[2022-04-16] MEDS: carvediloL 12.5 MG TABLET PO SCH (08:49)
[2022-04-16] MEDS: fentaNYL 50 MCG/HR PATCH TRANSDERM SCH (08:50)
== END 2022-04-16 12:10 | disposition home or self-care (01) | DRG 420 ==
LOC: N.ED 13:54 → N.CC 15:07
PROVIDERS: ADMIT Internal Medicine; ATTEND Internal Medicine